=== PATIENT | male | born 1965 | race Caucasian/White ===

== ENCOUNTER → 2017-05-21 | Day surgery (SDC) | payer MEDICARE, MEDICAID ==
[~2017-05-21] VITALS: Ht 185.4 cm; Wt 86.7 kg
[~2017-05-21] MED LIST: ABAC1TAB3 PO; ACETAMINOPHEN/HYDROcodone 325 MG/5 MG TAB PO PRN; AMPICILLIN/SULBAC 3 GM/NS 100 ML IV SCH; ASPI1TAB57 PO; ATOR80TA45 PO; BACITRACIN TOP OINT 15 GM TUBE ONE; CARV3.12 PO; CHLORHEXIDINE GLUCONATE 2 % 1 PACK (2 CLOTHS) TOPICAL PRN; DO NOT ADM ANY ANTICOAGULANT DRUGS PRN; EPINEPHrine HCL (1:1000) 1 MG/ML VIAL ONE; HYDR25TA5 PO; LACTATED RINGER'S 1000 ML INJ 1,000 ML IV SCH; LACTATED RINGER'S 1000 ML IV PRN; LIDOCAINE 1%/EPINEPHrine 1:100,000 SOLN 50 ML VIAL ONE; LIDOCAINE HCL 1% PF 5 ML SYRINGE OTHER ONE; LISI30TA4 PO; METOPROLOL TARTRATE 25 MG TAB PO PRN; PHENYLEPH/NS 1000 MCG/10 ML SYR IV ONE; POVIDONE IODINE 5% (ANTISEPSIS KIT) 4 APPLICATIONS EACH NARE PRN; PROPOFOL 200 MG/20 ML AMP IV ONE; SODIUM CHLORID 0.9% 500 ML IV PRN
[2017-05-21 13:01] VITALS: BP 151/94; PULSE 64; RESP 16; TEMP 98.1; O2SAT 98
--- NOTE | 2017-05-21 13:49 | EKG ---
Date Performed: 05/21/2017 Time Performed: 09:04:34 PTAGE: 51 years EKG: ELECTRONIC VENTRICULAR PACEMAKER ABNORMAL RHYTHM ECG PREVIOUS TRACING : 12/18/2013 06.39 DOCTOR: Kye Chaudhry Interpretating Date/Time 05/21/2017 13:48:12
--- NOTE | 2017-06-09 10:33 | MP ---
cc: NEELAM FINNEY M.D. DATE OF SURGERY: May 21, [address] Neelam Finney. PREOPERATIVE DIAGNOSIS Nodule in left parotid. POSTOPERATIVE DIAGNOSIS Nodule in left parotid. OPERATION PERFORMED Excision left parotid tumor without facial nerve dissection. INDICATIONS Geovanni Henson is a 51-year-old man who was found to have numerous asymptomatic nodules in his neck including one in the left tail of parotid area. PET CT scan has indicated hypermetabolism around his entire body. He is suspected to have a lymphoma and needs tissue diagnosis for confirmation. DESCRIPTION OF OPERATION The patient was taken to OR #8 and placed in the supine position. Following induction of general anesthesia and intubation a shoulder roll was placed and the patient was positioned for surgery. The left parotid area was marked for a modified Edi incision and the area of the otto was injected with 1:100,000 solution of epinephrine. He was then prepped and draped for surgery. The inferior portion of the modified Edi incision was made extending from the inferior of the tragus around the earlobe and then back around the tail of parotid area. Skin was then sharply elevated from this area using Leoneiharp Asad scissors. This exposed the area of the lesion which was then dissected free from the surrounding parotid tissue using blunt and bipolar cautery. When the 2 cm nodule was fully mobilized it was passed off the field as specimen. It appeared consistent with lymphoma. The wound was then irrigated and suctioned. It was closed in layers using 4-0 Vicryl subcutaneous and then 5-0 fast-absorbing plain gut in the skin. A facelift dressing was applied and the procedure was terminated. The patient was reversed from anesthesia and taken to recovery in good condition. There were no complications. Blood loss was less than 20 mL. MD VARINDER Jung/JC /8:02 AM /10:18 AM
== END | disposition home or self-care (01) ==
LOC: HSDC 08:38
PROVIDERS: ATTEND Otolaryngology
DX: C83.31 Diffuse large B-cell lymphoma, lymph nodes of head, face, and neck (principal); I10 Essential (primary) hypertension; I25.2 Old myocardial infarction; Z21 Asymptomatic human immunodeficiency virus [HIV] infection status
CPT/HCPCS: 00100; 42410; 88305; 88341; 88342; 88377; 93005; J0295; J2370; J7120; J0171

== ENCOUNTER 2017-06-05 06:17 | Day surgery (SDC) | payer MEDICARE, MEDICAID ==
[~2017-06-05] VITALS: Ht 185.4 cm; Wt 86.5 kg
[~2017-06-05 06:17] MED LIST changes: -ACETAMINOPHEN/HYDROcodone 325 MG/5 MG TAB PO PRN; -AMPICILLIN/SULBAC 3 GM/NS 100 ML IV SCH; -BACITRACIN TOP OINT 15 GM TUBE ONE; -CHLORHEXIDINE GLUCONATE 2 % 1 PACK (2 CLOTHS) TOPICAL PRN; -DO NOT ADM ANY ANTICOAGULANT DRUGS PRN; -EPINEPHrine HCL (1:1000) 1 MG/ML VIAL ONE; -LACTATED RINGER'S 1000 ML INJ 1,000 ML IV SCH; -LACTATED RINGER'S 1000 ML IV PRN; -LIDOCAINE 1%/EPINEPHrine 1:100,000 SOLN 50 ML VIAL ONE; -LIDOCAINE HCL 1% PF 5 ML SYRINGE OTHER ONE; -METOPROLOL TARTRATE 25 MG TAB PO PRN; -PHENYLEPH/NS 1000 MCG/10 ML SYR IV ONE; -POVIDONE IODINE 5% (ANTISEPSIS KIT) 4 APPLICATIONS EACH NARE PRN; -PROPOFOL 200 MG/20 ML AMP IV ONE; -SODIUM CHLORID 0.9% 500 ML IV PRN
[2017-06-05 06:40] VITALS: BP 149/89; PULSE 68; RESP 20; TEMP 97.9; O2SAT 97
[2017-06-05] MEDS ORDERED: CHLORHEXIDINE GLUCONATE 2 % 1 PACK (2 CLOTHS) TOPICAL SCH (07:00)
[2017-06-05] MEDS ORDERED: VANCOMYCIN 1000 MG/NS 250 ML - implanted port/tunneled catheter IV SCH ×2 (07:00)
[2017-06-05] MEDS ORDERED: POVIDONE IODINE 5% (ANTISEPSIS KIT) 4 APPLICATIONS EACH NARE SCH (07:00)
[2017-06-05] MEDS ORDERED: ceFAZolin 2 GM PREMIX 50 ML - implanted port/tunneled catheter insertion IV SCH (07:00)
[2017-06-05] MEDS ORDERED: SODIUM CHLORIDE 0.9% 1000 ML IV SCH (07:00)
[2017-06-05 07:14] LABS: AUTOMATED NEUTROPHIL # 5.1 TH/MM3 (1.8-7.7); BASOPHIL # 0.1 TH/MM3 (0-0.2); BASOPHIL % 0.9 % (0.0-2.0); EOSINOPHIL # 0.1 TH/MM3 (0-0.4); EOSINOPHIL % 1.9 % (0.0-4.0); HEMATOCRIT 39.2 % (39.0-51.0); HEMOGLOBIN 13.5 GM/DL (13.0-17.0); LYMPH % 15.1 % (9.0-44.0); LYMPHOCYTE # 1.1 TH/MM3 (1.0-4.8); MEAN CELL VOLUME 87.9 FL (80.0-100.0); MEAN CORPUSCULAR HEMOGLOBIN 30.2 PG (27.0-34.0); MEAN CORPUSCULAR HGB CONC 34.4 % (32.0-36.0); MEAN PLATELET VOLUME 9.4 FL (7.0-11.0); MONO % 9.5 % (0.0-8.0); MONOCYTE # 0.7 TH/MM3 (0-0.9); NEUT % 72.6 % (16.0-70.0); PLATELET COUNT 216 TH/MM3 (150-450); RED BLOOD COUNT 4.46 MIL/MM3 (4.50-5.90); RED CELL DISTRIBUTION WIDTH 12.7 % (11.6-17.2)
[2017-06-05 07:23] LABS: PROTHROMBIN TIME - PATIENT 10.1 SEC (9.8-11.6)
[2017-06-05] MEDS ORDERED: MIDAZOLAM HCL 2 MG/2 ML VIAL ONE ×2 (07:54→08:32)
--- NOTE | 2017-06-05 09:01 | PD.RAD ---
Post Procedure Progress Note Pre Procedure Diagnosis: (1) Large cell lymphoma Post Procedure Diagnosis: (1) Large cell lymphoma Procedure Date: Jun 05, 2017 Supervising Radiologist: Yobani Langston Proceduralist/Assist: Beck Morel RT(R), RT Wandy(R) Anesthesia: Local, Analgesia, Conscious Sedation Plan of Activity Patient to Unit: ROPU Patient Condition: Good See PACS Report for procedural detail/treatment Central Venous Access Device Procedure 1 Right Internal Jugular Infusaport Placement single lumen Cymro: 8 Yobani Langston MD Jun 05, 2017 09:01
[2017-06-05 09:10] VITALS: BP 148/98; PULSE 60; RESP 18; TEMP 97.8; O2SAT 93
[2017-06-05] MEDS ORDERED: SODIUM CHLORIDE 0.9% FLUSH 10 ML FLUSH IVF PRN (09:15)
[2017-06-05 09:25] VITALS: BP 128/95; PULSE 63; RESP 18; O2SAT 96
[2017-06-05 09:55] VITALS: BP 114/65; PULSE 60; RESP 18; O2SAT 96
[2017-06-05 10:25] VITALS: BP 116/69; PULSE 64; RESP 18; O2SAT 96
--- NOTE | 2017-06-05 16:50 | RADRPT ---
EXAM DATE/TIME: 06/05/2017 07:52 [place] COMPARISON: No previous studies available for comparison. INDICATIONS : Patient with large cell lymphoma in need of Obmbs-u-Bink placement. MEDICAL HISTORY : CAD, Cardiac arrest, CHF, HLD, HIV, MIx2, Cardiomyopathy ejection fraction 22%, HTN SURGICAL HISTORY : Biopsy of left jaw lymph node, AICD placement, CABG ENCOUNTER: Initial ACUITY: 4-6 months PAIN SCORE: 0/10 FLUORO TIME: 0.9 minutes IMAGE SERIES: 1 SEDATION TIME: 30 minutes ACCESS: Right internal jugular vein SEDATION: 1.) 5 mg midazolam (Versed) IV 2.) 250 mcg fentanyl (Sublimaze) IV Prophylactic antibiotics were administered with appropriate pre-procedure timing. Vancomycin within 2 hours of procedure, Ancef (or alternative) within 1 hour of procedure. DEVICE: 1. 8 [place] single lumen Bard Power Port PROCEDURE : 1. Continuous pulse oximetry and EKG monitoring. 2. Intravenous conscious sedation. 3. Ultrasound guidance for venous access. 4. Fluoroscopic guided implantable central venous port placement. The patient was placed supine. The neck was prepped in sterile fashion. Full sterile technique was u sed, including cap, mask, sterile gloves and gown, and a large sterile sheet. Hand hygiene and 2% ch lorhexidine Betadine was utilized per protocol for cutaneous antisepsis with appropriate dry time for site. Sterile gel and sterile probe cover were utilized for ultrasound guidance. The skin and sub cutaneous tissues were infiltrated with local anesthetic solution. Under direct ultrasound guidance, central venous access was accomplished in the targeted vessel. The ultrasound images depicting access guidance were stored and saved to PACS for permanent record. A s ubcutaneous pocket was created using blunt dissection. The port was introduced to the pocket. The c atheter tubing was fed through a subcutaneous tunnel to the venotomy site. The catheter tubing was c ut to a suitable length and then was introduced through a valved Peel-Away sheath and positioned with catheter tubing tip at the cavo-atrial junction level. The pocket incision was closed with subcutic ular Vicryl suture. Steri-Strips were applied. The port was flushed and locked with heparin solutio n per protocol. Sterile dressing was applied to the site. The patient tolerated the procedure well. Conscious sedation was performed with the prescribed dosages and duration as above in the presence of an independent trained radiology nurse to assist in the monitoring of the patient. EKG and oximetry remained stable throughout the procedure. The patient tolerated the procedure well and there were no complications. The patient was sent to post anesthesia recovery in stable condition. CONCLUSION: Uncomplicated ultrasound and fluoroscopic guided implanted central venous port catheter placement as described in detail above. An 8 [place]ian Power port was placed. Yobani Langston MD on June 05, 2017 at 16:47 Board Certified Radiologist. This report was verified electronically.
== END 2017-06-05 11:00 | disposition home or self-care (01) ==
LOC: HROP 06:17 → HRIP 06:44 → HROP 11:00
PROVIDERS: ATTEND Internal Medicine Hematology & Oncology
DX: C83.30 Diffuse large B-cell lymphoma, unspecified site (principal); I50.9 Heart failure, unspecified; I10 Essential (primary) hypertension; I42.9 Cardiomyopathy, unspecified; I25.10 Atherosclerotic heart disease of native coronary artery without angina pectoris; I25.2 Old myocardial infarction; Z95.1 Presence of aortocoronary bypass graft; Z21 Asymptomatic human immunodeficiency virus [HIV] infection status
CPT/HCPCS: 36561; 76937; 77001; 85025; 85610; 85730; 99152; 99153; C1788; J1642; J2250; J3010